=== PATIENT | female | born 1950 | race Caucasian/White ===

== ENCOUNTER → 2016-06-13 | Outpatient (CLI) | payer OTHER ==
[2016-06-13 15:30] LABS: Basophils # (auto) 0.1 uL; Basophils % (auto) 1.2 % (0.0-2.0); Eosinophils # (auto) 0.6 uL; Eosinophils % (auto) 7.3 % (0.0-7.0); Hematocrit 31.4 % (36.0-46.0); Hemoglobin 10.2 g/dL (12.2-16.2); Lymphocytes # (auto) 2.1 uL; Lymphocytes % (auto) 26.5 % (10.0-50.0); Mean Corpuscular Hgb Conc. 32.6 g/dL (32.0-36.0); Mean Platelet Volume 7.4 fL (7.4-10.4); Monocytes # (auto) 0.5 uL; Monocytes % (auto) 5.9 % (0.0-12.0); Neutrophils # (auto) 4.6 uL; Neutrophils % (auto) 59.1 % (37.0-80.0); Platelet Count (auto) 395 10^3/uL (140-450); Red Cell Distribution Width 15.3 % (11.6-16.0); White Blood Cell 7.8 10^3/uL (4.4-10.8)
[2016-06-13 15:46] LABS: Albumin 3.1 g/dL (3.4-5.0); BUN/Creatinine Ratio 21.3; Bilirubin, Total 0.2 mg/dL (0.2-1.0); Calcium 8.6 mg/dL (8.5-10.1); Potassium 4.1 mmol/L (3.5-5.1); Total Protein 7.5 g/dL (6.4-8.2)
== END | disposition home or self-care (01) ==
LOC: LAB 14:59
DX: I10 Essential (primary) hypertension (principal); M06.9 Rheumatoid arthritis, unspecified; M25.50 Pain in unspecified joint; D64.9 Anemia, unspecified; Z79.899 Other long term (current) drug therapy
CPT/HCPCS: 36415; 80053; 85025; 85652; 86141

== ENCOUNTER → 2016-08-16 | Outpatient (CLI) | payer OTHER ==
[2016-08-16 14:22] LABS: Basophils # (auto) 0.1 uL; Basophils % (auto) 1.5 % (0.0-2.0); Eosinophils # (auto) 0.3 uL; Eosinophils % (auto) 5.4 % (0.0-7.0); Hematocrit 31.6 % (36.0-46.0); Hemoglobin 10.4 g/dL (12.2-16.2); Mean Corpuscular Hemoglobin 30.2 pg (28.0-32.0); Mean Corpuscular Hgb Conc. 32.8 g/dL (32.0-36.0); Mean Corpuscular Volume 92.2 fL (80.0-100.0); Mean Platelet Volume 7.1 fL (7.4-10.4); Monocytes # (auto) 0.2 uL; Monocytes % (auto) 3.4 % (0.0-12.0); Neutrophils # (auto) 3.6 uL; Neutrophils % (auto) 69.7 % (37.0-80.0); Platelet Count (auto) 292 10^3/uL (140-450); White Blood Cell 5.2 10^3/uL (4.4-10.8)
[2016-08-16 14:42] LABS: Albumin 3.2 g/dL (3.4-5.0); Bilirubin, Total 0.2 mg/dL (0.2-1.0); Calcium 8.5 mg/dL (8.5-10.1); Potassium 4.1 mmol/L (3.5-5.1); Total Protein 7.9 g/dL (6.4-8.2)
== END | disposition home or self-care (01) ==
LOC: LAB 13:58
DX: I10 Essential (primary) hypertension (principal); M06.9 Rheumatoid arthritis, unspecified; M25.50 Pain in unspecified joint; Z79.899 Other long term (current) drug therapy; D64.9 Anemia, unspecified
CPT/HCPCS: 36415; 80053; 85025; 85652; 86141

== ENCOUNTER 2016-10-09 17:23 | Inpatient (IN) | payer OTHER ==
[~2016-10-09] VITALS: Ht 167.6 cm; Wt 61.6 kg
[2016-10-09 18:42] LABS: CONDITION Y; DEFINITIVE SEE PRINTOUT; Hematocrit 24.4 % (36.0-46.0); Hemoglobin 8.4 g/dL (12.2-16.2); Mean Corpuscular Hemoglobin 31.2 pg (28.0-32.0); Mean Corpuscular Hgb Conc. 34.5 g/dL (32.0-36.0); Mean Corpuscular Volume 90.4 fL (80.0-100.0); Platelet Count (auto) 393 10^3/uL (140-450); Red Cell Distribution Width 15.6 % (11.6-16.0); SUSPECT SEE PRINTOUT; White Blood Cell 15.6 10^3/uL (4.4-10.8)
[2016-10-09 18:59] LABS: Albumin 2.3 g/dL (3.4-5.0); Alkaline Phosphatase 149 U/L (45-117); Anion Gap 23 (5-15); Aspartate Aminotransferase 16 U/L (15-37); BUN/Creatinine Ratio 15.4; Bilirubin, Total 0.3 mg/dL (0.2-1.0); Calcium 7.3 mg/dL (8.5-10.1); Chloride 85 mmol/L (98-107); GFR African American 6 mL/min; GFR Non-African American 5 mL/min; Glucose 77 mg/dL (74-106); Magnesium 2.1 mg/dL (1.6-2.6); Potassium 4.6 mmol/L (3.5-5.1); Total Protein 7.1 g/dL (6.4-8.2)
[2016-10-09 19:10] LABS: Blood Urea Nitrogen 127 mg/dL (7-18); Carbon Dioxide 9 mmol/L (21-32); Metamyelocytes % 0; Myelocytes % 0; Promyelocytes % 0; Reactive Lymphocytes 0; Sodium 117 mmol/L (136-145)
[2016-10-09] MEDS ORDERED: PANTOPRAZOLE SODIUM 40 MG/10 ML VIAL IV ONE (19:45)
[2016-10-09 19:51] LABS: Allen Test Yes; Base Excess -14.4 mmol/L (-2.0-2.0); Blood 02Sat 97.8 % (96-100); Blood COHb 0.5 % (0.5-1.5); Blood MetHb 0.2 % (0.0-1.5); HCO3 11.6 mmol/L (22-26.0); HHb 2.2 % (0.0-5.0); MODE NASAL CANNULA; O2Hb 97.1 % (94.0-97.0); PCO2 27.8 mmHg (35.0-45.0); PCO2(T) 27.8 mmHg (35.0-45.0); Sample Type Arterial; pH 7.238 (7.350-7.450)
[2016-10-09] MEDS ORDERED: SODIUM CHLORIDE 0.9% 1,000 ML IV ONE ×2 (20:30→21:00)
[2016-10-09 20:35] LABS: Anisocytosis Slight; Platelet Estimate Adequate
[2016-10-09] MEDS ORDERED: NITROGLYCERIN 0.4 MG SL TAB SL PRN (21:00)
[2016-10-09] MEDS ORDERED: ASPirin 81 mg TAB PO ONE (21:00)
[2016-10-09] MEDS ORDERED: cefTRIAXone 1GM/50ML D5W 50 ML IV ONE (21:00)
[2016-10-09] MEDS ORDERED: MORPHINE SULFATE 4 MG/ML SYRG IV PRN (21:00)
[2016-10-09] MEDS ORDERED: LACTULOSE 20Gm/30ML SOLN PO PRN (21:00)
[2016-10-09] MEDS ORDERED: KETOROLAC TROMETH 30 MG/ML 1ML VIAL IV PRN (21:15)
[2016-10-09] MEDS ORDERED: SODIUM BICARBONATE 8.4 % INJ 50ML VIAL IV ONE (21:15)
[2016-10-09] MEDS ORDERED: SODIUM BICARBONATE 8.4% INJ 50ML SYRINGE ONE (21:37)
[2016-10-09 22:49] LABS: Urine Bilirubin Negative (Negative); Urine Color PINK (Yellow); Urine Glucose Normal (Normal); Urine Ketone Negative (Negative); Urine Nitrite Negative (Negative); Urine RBC 629 /hpf (0 - 4); Urine Urobilinogen Normal (Negative); Urine pH 5.5 (5.0-8.0)
[2016-10-09 22:50] LABS: Urine Blood 2+ /uL (Negative)
[2016-10-10 00:15] VITALS: BP 100/71
[2016-10-10] MEDS: LORazepam 2MG/ML-1ML VIAL IV PRN (01:13)
[2016-10-10] MEDS ORDERED: TRAM50TA2 PO (02:07)
[2016-10-10] MEDS ORDERED: AMLO5TAB2 PO (02:07)
[2016-10-10] MEDS ORDERED: ALPR0.254 PO (02:07)
[2016-10-10] MEDS ORDERED: METH2.5T3 PO (02:07)
[2016-10-10] MEDS ORDERED: NITR-52 PO (02:07)
[2016-10-10 06:38] LABS: Basophils # (auto) 0 uL; Basophils % (auto) 0.2 % (0.0-2.0); CONDITION Y; DEFINITIVE SEE PRINTOUT; Eosinophils # (auto) 0 uL; Eosinophils % (auto) 0.2 % (0.0-7.0); Hematocrit 23.9 % (36.0-46.0); Hemoglobin 8.1 g/dL (12.2-16.2); Lymphocytes # (auto) 0.7 uL; Lymphocytes % (auto) 6.6 % (10.0-50.0); Mean Corpuscular Hemoglobin 30.4 pg (28.0-32.0); Mean Corpuscular Hgb Conc. 33.8 g/dL (32.0-36.0); Mean Corpuscular Volume 89.9 fL (80.0-100.0); Mean Platelet Volume 7.9 fL (7.4-10.4); Monocytes # (auto) 0.1 uL; Monocytes % (auto) 1.1 % (0.0-12.0); Neutrophils # (auto) 10.4 uL; Neutrophils % (auto) 91.9 % (37.0-80.0); Platelet Count (auto) 418 10^3/uL (140-450); Red Cell Distribution Width 15.5 % (11.6-16.0); SUSPECT SEE PRINTOUT; White Blood Cell 11.3 10^3/uL (4.4-10.8)
[2016-10-10 06:54] LABS: Albumin 1.9 g/dL (3.4-5.0); Potassium 3.9 mmol/L (3.5-5.1)
[2016-10-10 07:08] LABS: BUN/Creatinine Ratio 18.7; Bilirubin, Total 0.2 mg/dL (0.2-1.0); Calcium 6.6 mg/dL (8.5-10.1); Total Protein 6.1 g/dL (6.4-8.2)
[2016-10-10] MEDS: cefTRIAXone 1GM/50ML D5W 50 ML IV SCH (09:26)
[2016-10-10] MEDS: PANTOPRAZOLE SODIUM 40 MG/10 ML VIAL IV SCH (09:26)
[2016-10-10] MEDS ORDERED: ENOXAPARIN SOD 30 MG/0.3 ML SYRINGE SC SCH (10:00)
[2016-10-10] MEDS ORDERED: ASPirin 81 mg TAB PO SCH (10:00)
[2016-10-10 11:45] VITALS: BP 102/55
[2016-10-10] MEDS: SODIUM CHLORIDE 0.9% 1,000 ML IV SCH ×2 (12:25→22:00)
[2016-10-10 12:42] LABS: Urine Bilirubin Negative (Negative); Urine Glucose Normal (Normal); Urine Ketone Negative (Negative); Urine Nitrite Negative (Negative); Urine RBC 769 /hpf (0 - 4); Urine Squamous Epithelial Cell FEW /hpf (<5); Urine Urobilinogen Normal (Negative); Urine pH 5.5 (5.0-8.0)
[2016-10-10 12:43] LABS: Urine Blood 3+ /uL (Negative); Urine Color Orange (Yellow)
[2016-10-10] MEDS: traMADol HCL 50 MG TAB PO PRN (15:41)
[2016-10-10 16:00] VITALS: BP 111/59
[2016-10-10 19:49] VITALS: BP 116/42
[2016-10-10 21:21] LABS: Vitamin B12 > 2000 pg/mL (211-911)
[2016-10-10 21:44] LABS: Temperature: 24.1 C (20.0-25.0)
[2016-10-11] VITALS (13 sets, daily range): BP systolic 112–154; BP diastolic 58–94
[2016-10-11 05:19] LABS: Basophils # (auto) 0 uL; CONDITION Y; DEFINITIVE SEE PRINTOUT; Eosinophils # (auto) 0.1 uL; Eosinophils % (auto) 1.4 % (0.0-7.0); Hematocrit 23.6 % (36.0-46.0); Hemoglobin 7.9 g/dL (12.2-16.2); Lymphocytes # (auto) 0.7 uL; Lymphocytes % (auto) 9.8 % (10.0-50.0); Mean Corpuscular Hemoglobin 30.6 pg (28.0-32.0); Mean Corpuscular Hgb Conc. 33.7 g/dL (32.0-36.0); Mean Corpuscular Volume 90.8 fL (80.0-100.0); Mean Platelet Volume 7.7 fL (7.4-10.4); Monocytes # (auto) 0.1 uL; Neutrophils # (auto) 6.6 uL; Neutrophils % (auto) 87.8 % (37.0-80.0); Platelet Count (auto) 520 10^3/uL (140-450); White Blood Cell 7.5 10^3/uL (4.4-10.8)
[2016-10-11 05:42] LABS: BUN/Creatinine Ratio 21.7; Calcium 6.2 mg/dL (8.5-10.1); Phosphorus 7.3 mg/dL (2.5-4.90); Potassium 3.7 mmol/L (3.5-5.1)
[2016-10-11] MEDS: traMADol HCL 50 MG TAB PO PRN ×3 (05:59→18:21)
[2016-10-11] MEDS: cefTRIAXone 1GM/50ML D5W 50 ML IV SCH (09:00)
[2016-10-11] MEDS: PANTOPRAZOLE SODIUM 40 MG/10 ML VIAL IV SCH (09:37)
[2016-10-11 11:07] LABS: Sjogren's Anti-SS-A Antibody <0.2 AI (0.0-0.9)
[2016-10-11] MEDS: SODIUM BICARBONATE 50ML VIAL 50 ML in SOD CHL 0.45% 1,000 ML IV SCH (11:45)
[2016-10-11] MEDS: FOLIC ACID 1 MG in D5W 5% 50 ML INJ SCH (16:10)
[2016-10-11] MEDS: LORazepam 2MG/ML-1ML VIAL IV PRN (16:41)
[2016-10-12] VITALS (7 sets, daily range): BP systolic 138–154; BP diastolic 66–82
[2016-10-12] MEDS: traMADol HCL 50 MG TAB PO PRN ×3 (00:17→15:15)
[2016-10-12] MEDS: SODIUM BICARBONATE 50ML VIAL 50 ML in SOD CHL 0.45% 1,000 ML IV SCH ×2 (01:00→08:40)
[2016-10-12] MEDS: LORazepam 2MG/ML-1ML VIAL IV PRN ×2 (02:19→19:58)
[2016-10-12 05:21] LABS: Basophils # (auto) 0 uL; Basophils % (auto) 0.2 % (0.0-2.0); CONDITION Y; Eosinophils # (auto) 0 uL; Hematocrit 28.1 % (36.0-46.0); Hemoglobin 9.5 g/dL (12.2-16.2); Lymphocytes # (auto) 0.5 uL; Lymphocytes % (auto) 14.6 % (10.0-50.0); Mean Corpuscular Hemoglobin 30.1 pg (28.0-32.0); Mean Corpuscular Hgb Conc. 33.8 g/dL (32.0-36.0); Mean Corpuscular Volume 89.1 fL (80.0-100.0); Mean Platelet Volume 7.3 fL (7.4-10.4); Monocytes # (auto) 0 uL; Neutrophils # (auto) 2.7 uL; Neutrophils % (auto) 83.2 % (37.0-80.0); Platelet Count (auto) 505 10^3/uL (140-450); White Blood Cell 3.2 10^3/uL (4.4-10.8)
[2016-10-12 05:32] LABS: INR 1.18 (0.9-1.15)
[2016-10-12 05:33] LABS: Prothrombin Time 12.9 sec (9.37-12.3)
[2016-10-12 05:38] LABS: Albumin 1.8 g/dL (3.4-5.0); BUN/Creatinine Ratio 27.4; Bilirubin, Total 0.6 mg/dL (0.2-1.0); Calcium 7.2 mg/dL (8.5-10.1); Phosphorus 5.4 mg/dL (2.5-4.90); Potassium 3.4 mmol/L (3.5-5.1); Total Protein 5.8 g/dL (6.4-8.2); Uric Acid 11.7 mg/dL (2.6-6.0)
[2016-10-12] MEDS: cefTRIAXone 1GM/50ML D5W 50 ML IV SCH (09:22)
[2016-10-12] MEDS: PANTOPRAZOLE SODIUM 40 MG/10 ML VIAL IV SCH (09:22)
[2016-10-12] MEDS: SODIUM CHLORIDE 0.9% 1,000 ML IV SCH (15:16)
[2016-10-12] MEDS: FOLIC ACID 1 MG in D5W 5% 50 ML INJ SCH (15:34)
[2016-10-13] MEDS: SODIUM CHLORIDE 0.9% 1,000 ML IV SCH ×3 (01:15→22:13)
[2016-10-13 05:06] VITALS: BP 133/60
[2016-10-13 06:06] LABS: Basophils # (auto) 0 uL; Basophils % (auto) 0.1 % (0.0-2.0); CONDITION Y; DEFINITIVE SEE PRINTOUT; Eosinophils # (auto) 0 uL; Eosinophils % (auto) 3.1 % (0.0-7.0); Hematocrit 24.5 % (36.0-46.0); Hemoglobin 8.4 g/dL (12.2-16.2); Lymphocytes # (auto) 0.7 uL; Lymphocytes % (auto) 43.1 % (10.0-50.0); Mean Corpuscular Hemoglobin 29.9 pg (28.0-32.0); Mean Corpuscular Hgb Conc. 34.4 g/dL (32.0-36.0); Mean Corpuscular Volume 86.9 fL (80.0-100.0); Mean Platelet Volume 7.5 fL (7.4-10.4); Monocytes # (auto) 0 uL; Monocytes % (auto) 1.9 % (0.0-12.0); Neutrophils # (auto) 0.8 uL; Neutrophils % (auto) 51.8 % (37.0-80.0); Platelet Count (auto) 398 10^3/uL (140-450); Red Cell Distribution Width 15.4 % (11.6-16.0); SUSPECT SEE PRINTOUT
[2016-10-13 06:20] LABS: INR 1.71 (0.9-1.15); Prothrombin Time 18.7 sec (9.37-12.3)
[2016-10-13 06:32] LABS: Albumin 1.7 g/dL (3.4-5.0); BUN/Creatinine Ratio 31.4; Bilirubin, Total 0.8 mg/dL (0.2-1.0); Magnesium 1.6 mg/dL (1.6-2.6); Total Protein 5.5 g/dL (6.4-8.2)
[2016-10-13 06:43] LABS: White Blood Cell 1.6 10^3/uL (4.4-10.8)
[2016-10-13 08:20] VITALS: BP 153/80
[2016-10-13] MEDS: cefTRIAXone 1GM/50ML D5W 50 ML IV SCH (08:40)
[2016-10-13] MEDS ORDERED: POTASSIUM CHL 20 Meq TABLET PO ONE (09:00)
[2016-10-13] MEDS: PANTOPRAZOLE SODIUM 40 MG/10 ML VIAL IV SCH (10:16)
[2016-10-13] MEDS: LORazepam 2MG/ML-1ML VIAL IV PRN ×2 (10:48→18:39)
[2016-10-13] MEDS: metroNIDAZOLE 500MG/100ML 100 ML IV SCH ×2 (13:09→22:12)
[2016-10-13 14:18] VITALS: BP 132/68
[2016-10-13] MEDS: VANCOMYCIN HCL 125MG/5ML ORAL SOL PO SCH ×3 (14:46→22:13)
[2016-10-13] MEDS: FOLIC ACID 1 MG in D5W 5% 50 ML INJ SCH (16:57)
[2016-10-13 17:20] VITALS: BP 139/60
[2016-10-13 21:49] VITALS: BP 131/64
[2016-10-14] MEDS: traMADol HCL 50 MG TAB PO PRN (02:19)
[2016-10-14 05:02] VITALS: BP 134/72
[2016-10-14] MEDS: metroNIDAZOLE 500MG/100ML 100 ML IV SCH ×3 (06:18→22:13)
[2016-10-14] MEDS: VANCOMYCIN HCL 125MG/5ML ORAL SOL PO SCH ×4 (06:18→22:13)
[2016-10-14 06:28] LABS: CONDITION Y; DEFINITIVE SEE PRINTOUT; Hematocrit 24.1 % (36.0-46.0); Hemoglobin 8.2 g/dL (12.2-16.2); Mean Corpuscular Hemoglobin 30.3 pg (28.0-32.0); Mean Corpuscular Volume 89.1 fL (80.0-100.0); Mean Platelet Volume 7.1 fL (7.4-10.4); Platelet Count (auto) 344 10^3/uL (140-450); Red Cell Distribution Width 15.8 % (11.6-16.0); SUSPECT SEE PRINTOUT; White Blood Cell 2.6 10^3/uL (4.4-10.8)
[2016-10-14 06:31] LABS: Albumin 1.8 g/dL (3.4-5.0); BUN/Creatinine Ratio 28.2; Calcium 6.5 mg/dL (8.5-10.1); Magnesium 1.3 mg/dL (1.6-2.6); Potassium 3.1 mmol/L (3.5-5.1)
[2016-10-14 06:34] LABS: Bilirubin, Total 0.7 mg/dL (0.2-1.0); Total Protein 5.6 g/dL (6.4-8.2)
[2016-10-14 06:38] LABS: INR 1.89 (0.9-1.15)
[2016-10-14 06:56] LABS: Prothrombin Time 20.7 sec (9.37-12.3)
[2016-10-14 07:13] LABS: Metamyelocytes % 0; Myelocytes % 0; Promyelocytes % 0; Reactive Lymphocytes 0
[2016-10-14] MEDS: SODIUM CHLORIDE 0.9% 1,000 ML IV SCH ×2 (07:25→18:00)
[2016-10-14 07:55] LABS: Hypersegmented Neutrophils Present; Platelet Estimate Adequate
[2016-10-14 07:56] LABS: Anisocytosis Slight
[2016-10-14] MEDS: ONDANSETRON HCL 4 MG/2 ML VIAL IV PRN (08:48)
[2016-10-14] MEDS: cefTRIAXone 1GM/50ML D5W 50 ML IV SCH (08:48)
[2016-10-14 09:00] VITALS: BP 147/73
[2016-10-14 09:12] LABS: Hepatitis B Surface Antibody Positive
[2016-10-14 09:15] LABS: Vitamin B12 > 2000 pg/mL (211-911)
[2016-10-14 09:45] LABS: Temperature: 22.3 C (20.0-25.0)
[2016-10-14] MEDS: PANTOPRAZOLE SODIUM 40 MG/10 ML VIAL IV SCH (10:10)
[2016-10-14] MEDS ORDERED: POTASSIUM CHL 20 Meq TABLET PO ONE ×3 (11:45→18:00)
[2016-10-14 13:00] VITALS: BP 132/69
[2016-10-14] MEDS: LORazepam 2MG/ML-1ML VIAL IV PRN ×2 (14:29→20:50)
[2016-10-14] MEDS: FOLIC ACID 1 MG in D5W 5% 50 ML INJ SCH (16:05)
[2016-10-14 17:00] VITALS: BP 135/78
[2016-10-14 21:37] VITALS: BP 143/73
[2016-10-15] MEDS: SODIUM CHLORIDE 0.9% 1,000 ML IV SCH ×2 (03:15→13:15)
[2016-10-15] MEDS: traMADol HCL 50 MG TAB PO PRN (05:02)
[2016-10-15 05:14] VITALS: BP 151/77
[2016-10-15] MEDS: metroNIDAZOLE 500MG/100ML 100 ML IV SCH ×3 (05:54→22:07)
[2016-10-15] MEDS: VANCOMYCIN HCL 125MG/5ML ORAL SOL PO SCH ×4 (05:55→22:39)
[2016-10-15 06:46] LABS: CONDITION Y; DEFINITIVE SEE PRINTOUT; Hematocrit 23.6 % (36.0-46.0); Hemoglobin 8.1 g/dL (12.2-16.2); Mean Corpuscular Hgb Conc. 34.1 g/dL (32.0-36.0); Mean Corpuscular Volume 88.2 fL (80.0-100.0); Mean Platelet Volume 7.2 fL (7.4-10.4); Platelet Count (auto) 257 10^3/uL (140-450); Red Cell Distribution Width 15.8 % (11.6-16.0); SUSPECT SEE PRINTOUT; White Blood Cell 3.2 10^3/uL (4.4-10.8)
[2016-10-15 07:05] LABS: INR 1.49 (0.9-1.15)
[2016-10-15 07:06] LABS: Potassium 4.3 mmol/L (3.5-5.1)
[2016-10-15 07:10] LABS: Albumin 1.8 g/dL (3.4-5.0); BUN/Creatinine Ratio 23.4; Calcium 6.9 mg/dL (8.5-10.1); Magnesium 1.4 mg/dL (1.6-2.6)
[2016-10-15 07:14] LABS: Prothrombin Time 16.3 sec (9.37-12.3)
[2016-10-15 07:22] LABS: Bilirubin, Total 0.6 mg/dL (0.2-1.0); Metamyelocytes % 0; Myelocytes % 0; Promyelocytes % 0; Reactive Lymphocytes 0; Total Protein 5.4 g/dL (6.4-8.2)
[2016-10-15 08:52] LABS: Platelet Clumps FEW; Platelet Estimate Adequate
[2016-10-15 08:53] LABS: Hypochromia Moderate
[2016-10-15 09:00] VITALS: BP 137/79
[2016-10-15] MEDS: PANTOPRAZOLE SODIUM 40 MG/10 ML VIAL IV SCH (10:31)
[2016-10-15] MEDS: cefTRIAXone 1GM/50ML D5W 50 ML IV SCH (10:31)
[2016-10-15] MEDS: LORazepam 2MG/ML-1ML VIAL IV PRN ×2 (10:31→18:18)
[2016-10-15 13:00] VITALS: BP 131/76
[2016-10-15] MEDS: FOLIC ACID 1 MG in D5W 5% 50 ML INJ SCH (16:48)
[2016-10-15 17:00] VITALS: BP 133/75
[2016-10-15 22:00] VITALS: BP 155/77
[2016-10-15] MEDS: ONDANSETRON HCL 4 MG/2 ML VIAL IV PRN (22:39)
[2016-10-16] MEDS: SODIUM CHLORIDE 0.9% 1,000 ML IV SCH ×3 (01:42→19:28)
[2016-10-16] MEDS: LORazepam 2MG/ML-1ML VIAL IV PRN ×2 (01:42→13:32)
[2016-10-16 05:00] VITALS: BP 147/78
[2016-10-16] MEDS: VANCOMYCIN HCL 125MG/5ML ORAL SOL PO SCH ×3 (05:34→17:58)
[2016-10-16] MEDS: metroNIDAZOLE 500MG/100ML 100 ML IV SCH ×2 (05:34→13:57)
[2016-10-16] MEDS: ONDANSETRON HCL 4 MG/2 ML VIAL IV PRN ×2 (05:35→09:47)
[2016-10-16 06:38] LABS: INR 1.47 (0.9-1.15)
[2016-10-16 06:47] LABS: Prothrombin Time 16.1 sec (9.37-12.3)
[2016-10-16 06:50] LABS: Albumin 1.8 g/dL (3.4-5.0); BUN/Creatinine Ratio 20.3; Bilirubin, Total 0.4 mg/dL (0.2-1.0); Calcium 6.7 mg/dL (8.5-10.1); Magnesium 1.2 mg/dL (1.6-2.6); Potassium 3.5 mmol/L (3.5-5.1); Total Protein 5.1 g/dL (6.4-8.2)
[2016-10-16 07:26] LABS: Basophils # (auto) 0 uL; CONDITION Y; DEFINITIVE SEE PRINTOUT; Eosinophils # (auto) 0.2 uL; Lymphocytes # (auto) 0.8 uL; Monocytes # (auto) 0 uL; SUSPECT SEE PRINTOUT; White Blood Cell 3.1 10^3/uL (4.4-10.8)
[2016-10-16 07:48] LABS: Basophils % (auto) 0.4 % (0.0-2.0); Eosinophils % (auto) 6.6 % (0.0-7.0); Hematocrit 22.8 % (36.0-46.0); Hemoglobin 7.8 g/dL (12.2-16.2); Lymphocytes % (auto) 26.6 % (10.0-50.0); Mean Corpuscular Hemoglobin 30.3 pg (28.0-32.0); Mean Corpuscular Hgb Conc. 34.2 g/dL (32.0-36.0); Mean Corpuscular Volume 88.5 fL (80.0-100.0); Mean Platelet Volume 7.3 fL (7.4-10.4); Monocytes % (auto) 0.1 % (0.0-12.0); Neutrophils % (auto) 66.3 % (37.0-80.0); Platelet Count (auto) 187 10^3/uL (140-450); Red Cell Distribution Width 15.2 % (11.6-16.0)
[2016-10-16] MEDS: cefTRIAXone 1GM/50ML D5W 50 ML IV SCH (09:46)
[2016-10-16] MEDS: PANTOPRAZOLE SODIUM 40 MG/10 ML VIAL IV SCH (09:47)
[2016-10-16] MEDS: traMADol HCL 50 MG TAB PO PRN (09:48)
[2016-10-16 10:08] VITALS: BP 126/68
[2016-10-16 14:32] VITALS: BP 128/70
[2016-10-16] MEDS: FOLIC ACID 1 MG in D5W 5% 50 ML INJ SCH (16:30)
[2016-10-16 17:35] VITALS: BP 130/80
== END 2016-10-16 19:15 | disposition home or self-care (01) | DRG 871 ==
LOC: ER 17:23 → EDBD 17:23 → TELE 17:54 → ICU CENTRL 23:52 → DOU IN ICU 23:54 → TELE-WESTW 10-11 21:30
PROVIDERS: ADMIT Family Medicine; ATTEND Internal Medicine
PROC: 30233N1 Transfusion of Nonautologous Red Blood Cells into Peripheral Vein, Percutaneous Approach (ICD-10-PCS; principal; 2016-10-11)
DX: A41.9 Sepsis, unspecified organism (principal); N17.0 Acute kidney failure with tubular necrosis; G93.49 Other encephalopathy; G92 Toxic encephalopathy; E87.1 Hypo-osmolality and hyponatremia; N39.0 Urinary tract infection, site not specified; A04.7 Enterocolitis due to Clostridium difficile; E87.2 Acidosis; D61.818 Other pancytopenia; N12 Tubulo-interstitial nephritis, not specified as acute or chronic; M06.9 Rheumatoid arthritis, unspecified; D53.9 Nutritional anemia, unspecified; E86.0 Dehydration; B96.20 Unspecified Escherichia coli [E. coli] as the cause of diseases classified elsewhere; N18.2 Chronic kidney disease, stage 2 (mild); I12.9 Hypertensive chronic kidney disease with stage 1 through stage 4 chronic kidney disease, or unspecified chronic kidney disease; G89.29 Other chronic pain; D63.8 Anemia in other chronic diseases classified elsewhere; T50.905A Adverse effect of unspecified drugs, medicaments and biological substances, initial encounter; I70.0 Atherosclerosis of aorta; Z80.0 Family history of malignant neoplasm of digestive organs; Z79.1 Long term (current) use of non-steroidal anti-inflammatories (NSAID); Z82.3 Family history of stroke; Z82.49 Family history of ischemic heart disease and other diseases of the circulatory system; Z88.1 Allergy status to other antibiotic agents; Z71.89 Other specified counseling
CPT/HCPCS: 36415; 36600; 70450; 70551; 71010; 76705; 80048; 80053; 81001; 82270; 82306; 82570; 82607; 82728; 82746; 82805; 82962; 83516; 83540; 83550; 83735; 83935; 83970; 84100; 84156; 84300; 84439; 84443; 84484; 84550; 85007; 85025; 85027; 85045; 85610; 85652; 86225; 86235; 86706; 86803; 86850; 86900; 86901; 86920; 87040; 87077; 87081; 87086; 87186; 87340; 87493; 92610; 93005; 95819; 96361; 96365; 96375; 97110; 97116; 97163; 97530; C9113; J0696; J2405; J3490; J7060

== ENCOUNTER → 2016-10-31 | Outpatient (CLI) | payer OTHER ==
[~2016-10-31] MED LIST: ALPR0.254 PO; AMLO5TAB2 PO; METH2.5T3 PO; NITR-52 PO; TRAM50TA2 PO
[2016-10-31 09:43] LABS: Basophils # (auto) 0.1 uL; Basophils % (auto) 0.9 % (0.0-2.0); CONDITION Y; DEFINITIVE SEE PRINTOUT; Eosinophils # (auto) 0.4 uL; Eosinophils % (auto) 2.8 % (0.0-7.0); Lymphocytes # (auto) 2.4 uL; Lymphocytes % (auto) 15.4 % (10.0-50.0); Mean Corpuscular Hemoglobin 29.8 pg (28.0-32.0); Mean Corpuscular Hgb Conc. 33.6 g/dL (32.0-36.0); Mean Corpuscular Volume 88.8 fL (80.0-100.0); Mean Platelet Volume 8.5 fL (7.4-10.4); Monocytes # (auto) 1.6 uL; Monocytes % (auto) 10.5 % (0.0-12.0); Neutrophils # (auto) 10.9 uL; Neutrophils % (auto) 70.4 % (37.0-80.0); Platelet Count (auto) 542 10^3/uL (140-450); Red Cell Distribution Width 15.8 % (11.6-16.0); White Blood Cell 15.5 10^3/uL (4.4-10.8)
[2016-10-31 10:03] LABS: Albumin 2.5 g/dL (3.4-5.0); BUN/Creatinine Ratio 7.7; Bilirubin, Total 0.1 mg/dL (0.2-1.0); Calcium 8.4 mg/dL (8.5-10.1); Potassium 3.7 mmol/L (3.5-5.1); Total Protein 7.2 g/dL (6.4-8.2)
== END | disposition home or self-care (01) ==
LOC: LAB 07:13
PROVIDERS: ATTEND Internal Medicine
DX: Z00.00 Encounter for general adult medical examination without abnormal findings (principal); Z20.2 Contact with and (suspected) exposure to infections with a predominantly sexual mode of transmission; E78.2 Mixed hyperlipidemia; I10 Essential (primary) hypertension
CPT/HCPCS: 36415; 80053; 80061; 84443; 85025; 87522

== ENCOUNTER → 2016-11-05 | Outpatient (CLI) | payer OTHER ==
[2016-11-05 10:39] LABS: Urine Squamous Epithelial Cell None Seen /hpf (<5)
[2016-11-05 10:48] LABS: Urine Color Yellow (Yellow); Urine Glucose Normal (Normal)
[2016-11-05 10:49] LABS: Urine Bilirubin Negative (Negative); Urine Blood 3+ /uL (Negative); Urine Ketone Negative (Negative); Urine Nitrite Negative (Negative); Urine RBC 144 /hpf (0 - 4); Urine Urobilinogen Normal (Negative); Urine pH 6.5 (5.0-8.0)
== END | disposition home or self-care (01) ==
LOC: LAB 10:37
PROVIDERS: ATTEND Internal Medicine
DX: Z00.00 Encounter for general adult medical examination without abnormal findings (principal); Z20.2 Contact with and (suspected) exposure to infections with a predominantly sexual mode of transmission; E78.2 Mixed hyperlipidemia; I10 Essential (primary) hypertension
CPT/HCPCS: 81001

== ENCOUNTER → 2017-02-21 | Outpatient (CLI) | payer MEDICARE ==
[2017-02-21 13:38] LABS: Basophils # (auto) 0.1 uL; Basophils % (auto) 0.9 % (0.0-2.0); Eosinophils # (auto) 0.6 uL; Hematocrit 24.3 % (36.0-46.0); Hemoglobin 7.9 g/dL (12.2-16.2); Lymphocytes # (auto) 3.2 uL; Lymphocytes % (auto) 26.7 % (10.0-50.0); Mean Corpuscular Hemoglobin 27.6 pg (28.0-32.0); Mean Corpuscular Hgb Conc. 32.4 g/dL (32.0-36.0); Mean Corpuscular Volume 85.2 fL (80.0-100.0); Mean Platelet Volume 6.6 fL (6.9-10.8); Monocytes % (auto) 8.6 % (0.0-12.0); Neutrophils # (auto) 7.1 uL; Neutrophils % (auto) 58.8 % (37.0-80.0); Platelet Count (auto) 439 10^3/uL (140-450); Red Cell Distribution Width 14.3 % (11.8-14.3); White Blood Cell 12.1 10^3/uL (4.4-10.8)
[2017-02-21 14:17] LABS: Albumin 2.8 g/dL (3.4-5.0); BUN/Creatinine Ratio 24.3; Bilirubin, Total 0.2 mg/dL (0.2-1.0); Calcium 8.4 mg/dL (8.5-10.1); Potassium 3.9 mmol/L (3.5-5.1)
== END | disposition home or self-care (01) ==
LOC: LAB 13:10
DX: I70.0 Atherosclerosis of aorta (principal); E78.00 Pure hypercholesterolemia, unspecified; I10 Essential (primary) hypertension; M06.9 Rheumatoid arthritis, unspecified; M25.50 Pain in unspecified joint; D64.9 Anemia, unspecified; Z79.899 Other long term (current) drug therapy
CPT/HCPCS: 36415; 80053; 85025; 85652; 86141

== ENCOUNTER 2017-04-05 09:00 | Emergency (ER) | payer MEDICARE ==
[~2017-04-05] VITALS: Ht 167.6 cm; Wt 51.7 kg
[2017-04-05 09:21] VITALS: BP 123/77
== END 2017-04-05 10:12 | disposition home or self-care (01) ==
LOC: ER 09:00
DX: M19.90 Unspecified osteoarthritis, unspecified site (principal); I10 Essential (primary) hypertension; Z76.0 Encounter for issue of repeat prescription; Z88.1 Allergy status to other antibiotic agents

== ENCOUNTER → 2018-02-17 | Outpatient (CLI) | payer BC ==
[~2018-02-17] MED LIST changes: +AMLO5TAB13 PO; -AMLO5TAB2 PO
[2018-02-17 15:47] LABS: Basophils # (auto) 0 uL; Basophils % (auto) 0.6 % (0.0-2.0); Eosinophils # (auto) 0.2 uL; Eosinophils % (auto) 3.6 % (0.0-7.0); Hematocrit 35.2 % (36.0-46.0); Hemoglobin 11.6 g/dL (12.2-16.2); Lymphocytes # (auto) 1.9 uL; Lymphocytes % (auto) 28.7 % (10.0-50.0); Mean Corpuscular Hemoglobin 31.1 pg (28.0-32.0); Monocytes # (auto) 0.7 uL; Monocytes % (auto) 9.7 % (0.0-12.0); Neutrophils # (auto) 3.9 uL; Neutrophils % (auto) 57.4 % (37.0-80.0); Platelet Count (auto) 261 10^3/uL (140-450); Red Blood Cells 3.75 10^6/uL (4.0-5.20); Red Cell Distribution Width 15.7 % (11.8-14.3); White Blood Cell 6.7 10^3/uL (4.4-10.8)
[2018-02-17 16:05] LABS: INR 0.98 (0.9-1.15); Prothrombin Time 10.5 sec (9.27-12.13)
[2018-02-17 17:22] LABS: Potassium 4.5 mmol/L (3.5-5.1)
[2018-02-17 17:23] LABS: Calcium 7.9 mg/dL (8.5-10.1)
== END | disposition home or self-care (01) ==
LOC: LAB 14:39
DX: K41.00 Bilateral femoral hernia, with obstruction, without gangrene, not specified as recurrent (principal)
CPT/HCPCS: 36415; 80048; 85025; 85610; 85730

== ENCOUNTER → 2018-03-12 | Outpatient (CLI) | payer BC ==
[2018-03-12 09:40] LABS: Basophils # (auto) 0.1 uL; Basophils % (auto) 1.2 % (0.0-2.0); Eosinophils # (auto) 0.4 uL; Eosinophils % (auto) 6.3 % (0.0-7.0); Hematocrit 35.6 % (36.0-46.0); Hemoglobin 11.7 g/dL (12.2-16.2); Lymphocytes # (auto) 1.7 uL; Lymphocytes % (auto) 24.7 % (10.0-50.0); Mean Corpuscular Hemoglobin 30.9 pg (28.0-32.0); Mean Corpuscular Hgb Conc. 32.9 g/dL (32.0-36.0); Monocytes # (auto) 0.5 uL; Monocytes % (auto) 7.4 % (0.0-12.0); Neutrophils # (auto) 4.3 uL; Neutrophils % (auto) 60.4 % (37.0-80.0); Platelet Count (auto) 363 10^3/uL (140-450); Red Blood Cells 3.78 10^6/uL (4.0-5.20); Red Cell Distribution Width 15.6 % (11.8-14.3); White Blood Cell 7.1 10^3/uL (4.4-10.8)
[2018-03-12 10:06] LABS: Calcium 8.6 mg/dL (8.5-10.1); Potassium 4.6 mmol/L (3.5-5.1)
[2018-03-12 10:13] LABS: Albumin 3.2 g/dL (3.4-5.0); BUN/Creatinine Ratio 17.4; Bilirubin, Total 0.3 mg/dL (0.2-1.0); Total Protein 7.4 g/dL (6.4-8.2)
== END | disposition home or self-care (01) ==
LOC: LAB 08:33
DX: R91.8 Other nonspecific abnormal finding of lung field (principal)
CPT/HCPCS: 36415; 80053; 80061; 83036; 83970; 85025

== ENCOUNTER → 2018-03-17 | Outpatient (CLI) | payer BC | END | disposition home or self-care (01) | LOC: LAB 09:56 | DX: R91.8 Other nonspecific abnormal finding of lung field (principal) | CPT/HCPCS: 82043 ==

== ENCOUNTER → 2018-04-22 | Outpatient (CLI) | payer BC, OTHER ==
[2018-04-22 15:39] LABS: Basophils # (auto) 0 uL; Basophils % (auto) 0.7 % (0.0-2.0); Eosinophils # (auto) 0.6 uL; Eosinophils % (auto) 10.8 % (0.0-7.0); Hematocrit 32.4 % (36.0-46.0); Hemoglobin 10.5 g/dL (12.2-16.2); Lymphocytes # (auto) 1.6 uL; Lymphocytes % (auto) 26.5 % (10.0-50.0); Mean Corpuscular Hemoglobin 30.8 pg (28.0-32.0); Mean Corpuscular Hgb Conc. 32.4 g/dL (32.0-36.0); Mean Corpuscular Volume 94.9 fL (80.0-100.0); Monocytes # (auto) 0.9 uL; Monocytes % (auto) 14.6 % (0.0-12.0); Neutrophils # (auto) 2.8 uL; Neutrophils % (auto) 47.4 % (37.0-80.0); Nucleated Red Blood Cells % 0.1 %; Platelet Count (auto) 248 10^3/uL (140-450); Red Blood Cells 3.41 10^6/uL (4.0-5.20); Red Cell Distribution Width 15.2 % (11.8-14.3)
[2018-04-22 15:59] LABS: Albumin 3.2 g/dL (3.4-5.0); Calcium 8.3 mg/dL (8.5-10.1); Potassium 4.3 mmol/L (3.5-5.1)
[2018-04-22 16:03] LABS: BUN/Creatinine Ratio 22.4; Bilirubin, Total 0.2 mg/dL (0.2-1.0); Total Protein 7.6 g/dL (6.4-8.2)
[2018-04-22 16:06] LABS: INR 0.97 (0.9-1.15); Partial Thromboplastin Time 34.8 sec (23.78-33.04); Prothrombin Time 10.4 sec (9.27-12.13)
== END | disposition home or self-care (01) ==
LOC: LAB 15:06
DX: Z01.818 Encounter for other preprocedural examination (principal); J44.9 Chronic obstructive pulmonary disease, unspecified; R91.8 Other nonspecific abnormal finding of lung field
CPT/HCPCS: 36415; 80053; 85025; 85610; 85730

== ENCOUNTER → 2018-08-20 | Outpatient (CLI) | payer OTHER ==
[2018-08-20 15:27] LABS: Basophils # (auto) 0 uL; Basophils % (auto) 0.4 % (0.0-2.0); Eosinophils # (auto) 0.3 uL; Eosinophils % (auto) 3.2 % (0.0-7.0); Hematocrit 29.2 % (36.0-46.0); Hemoglobin 9.5 g/dL (12.2-16.2); Lymphocytes # (auto) 0.8 uL; Lymphocytes % (auto) 7.8 % (10.0-50.0); Mean Corpuscular Hemoglobin 29.5 pg (28.0-32.0); Mean Corpuscular Hgb Conc. 32.4 g/dL (32.0-36.0); Mean Corpuscular Volume 90.9 fL (80.0-100.0); Monocytes # (auto) 0.9 uL; Neutrophils # (auto) 7.8 uL; Neutrophils % (auto) 79.6 % (37.0-80.0); Platelet Count (auto) 226 10^3/uL (140-450); Red Blood Cells 3.21 10^6/uL (4.0-5.20); Red Cell Distribution Width 18.4 % (11.8-14.3); White Blood Cell 9.8 10^3/uL (4.4-10.8)
[2018-08-20 15:45] LABS: Albumin 3.3 g/dL (3.4-5.0)
== END | disposition home or self-care (01) ==
LOC: LAB 14:36
PROVIDERS: ATTEND Internal Medicine Rheumatology
DX: M06.9 Rheumatoid arthritis, unspecified (principal)
CPT/HCPCS: 36415; 82040; 82565; 84450; 84460; 85025

== ENCOUNTER → 2018-10-20 | Outpatient (CLI) | payer MEDICARE ==
[~2018-10-20] MED LIST changes: -AMLO5TAB13 PO; +AMLO5TAB15 PO
[2018-10-20 14:10] LABS: Basophils # (auto) 0.1 uL; Eosinophils # (auto) 0.1 uL; Hematocrit 24.4 % (36.0-46.0); Lymphocytes # (auto) 0.9 uL; Mean Corpuscular Volume 88.5 fL (80.0-100.0); Monocytes # (auto) 0.4 uL; Red Cell Distribution Width 18.1 % (11.8-14.3)
[2018-10-20 14:12] LABS: Eosinophils % (auto) 2.3 % (0.0-7.0); Hemoglobin 7.9 g/dL (12.2-16.2); Lymphocytes % (auto) 14.6 % (10.0-50.0); Mean Corpuscular Hemoglobin 28.6 pg (28.0-32.0); Mean Corpuscular Hgb Conc. 32.4 g/dL (32.0-36.0); Neutrophils # (auto) 4.7 uL; Neutrophils % (auto) 76.1 % (37.0-80.0); Platelet Count (auto) 331 10^3/uL (140-450); Red Blood Cells 2.75 10^6/uL (4.0-5.20); White Blood Cell 6.2 10^3/uL (4.4-10.8)
[2018-10-20 14:39] LABS: Albumin 2.9 g/dL (3.4-5.0)
[2018-10-20 14:43] LABS: BUN/Creatinine Ratio 23.2; Bilirubin, Total 0.2 mg/dL (0.2-1.0); Calcium 8.6 mg/dL (8.5-10.1); Total Protein 7.6 g/dL (6.4-8.2); Uric Acid 3.6 mg/dL (2.6-6.0)
[2018-10-21 08:06] LABS: Immunoglobulin G, Serum 1506 mg/dL (700-1600)
[2018-10-22 08:37] LABS: Hepatitis B Surface Antibody Positive
[2018-10-22 13:05] LABS: Hepatitis B Surface Antigen Negative (Negative)
== END | disposition home or self-care (01) ==
LOC: LAB 13:35
PROVIDERS: ATTEND Internal Medicine
DX: R91.8 Other nonspecific abnormal finding of lung field (principal); Z11.59 Encounter for screening for other viral diseases
CPT/HCPCS: 36415; 80053; 82232; 82784; 83615; 83883; 84155; 84165; 84550; 85025; 85652; 86703; 86706; 86803; 87340

== ENCOUNTER → 2019-01-01 | Outpatient (CLI) | payer MEDICARE ==
[2019-01-01 15:05] LABS: Basophils # (auto) 0.1 uL; Eosinophils # (auto) 0.3 uL; Hemoglobin 8.2 g/dL (12.2-16.2); Monocytes # (auto) 1.2 uL
[2019-01-01 15:10] LABS: Basophils % (auto) 1.2 % (0.0-2.0); Hematocrit 25.4 % (36.0-46.0); Lymphocytes % (auto) 13.7 % (10.0-50.0); Mean Corpuscular Hemoglobin 27.7 pg (28.0-32.0); Mean Corpuscular Hgb Conc. 32.5 g/dL (32.0-36.0); Mean Corpuscular Volume 85.3 fL (80.0-100.0); Monocytes % (auto) 16.3 % (0.0-12.0); Neutrophils # (auto) 4.6 uL; Neutrophils % (auto) 64.8 % (37.0-80.0); Platelet Count (auto) 308 10^3/uL (140-450); Red Blood Cells 2.97 10^6/uL (4.0-5.20); Red Cell Distribution Width 18.9 % (11.8-14.3); White Blood Cell 7.1 10^3/uL (4.4-10.8)
[2019-01-01 15:20] LABS: Albumin 2.9 g/dL (3.4-5.0); Calcium 8.1 mg/dL (8.5-10.1); Uric Acid 3.6 mg/dL (2.6-6.0)
[2019-01-01 15:24] LABS: BUN/Creatinine Ratio 15.7; Bilirubin, Total 0.2 mg/dL (0.2-1.0); Total Protein 7.4 g/dL (6.4-8.2)
== END | disposition home or self-care (01) ==
LOC: LAB 14:46
DX: M06.9 Rheumatoid arthritis, unspecified (principal); E46 Unspecified protein-calorie malnutrition; Z79.899 Other long term (current) drug therapy
CPT/HCPCS: 36415; 80053; 80061; 82043; 83036; 84443; 84550; 85025

== ENCOUNTER → 2019-09-01 | Outpatient (CLI) | payer OTHER ==
[2019-09-01 08:23] LABS: Basophils # (auto) 0.1 10 ^3/uL (0-0.2); Basophils % (auto) 1.5 % (0.0-2.0); Eosinophils # (auto) 0.2 10 ^3/uL (0-0.8); Eosinophils % (auto) 4.5 % (0.0-7.0); Hemoglobin 7.1 g/dL (12.2-16.2); Lymphocytes # (auto) 0.6 10 ^3/uL (0.4-5.4); Lymphocytes % (auto) 13.7 % (10.0-50.0); Mean Corpuscular Hemoglobin 28.5 pg (28.0-32.0); Mean Corpuscular Volume 88.9 fL (80.0-100.0); Monocytes # (auto) 0.1 10 ^3/uL (0-1.3); Monocytes % (auto) 2.8 % (0.0-12.0); Neutrophils # (auto) 3.1 10 ^3/uL (1.6-8.6); Neutrophils % (auto) 77.5 % (37.0-80.0); Platelet Count (auto) 436 10^3/uL (140-450); Red Blood Cells 2.48 10^6/uL (4.0-5.20)
[2019-09-01 08:24] LABS: Red Cell Distribution Width 25.3 % (11.8-14.3)
[2019-09-01 08:30] LABS: Calcium 8.8 mg/dL (8.5-10.1); Potassium 5.2 mmol/L (3.5-5.1)
[2019-09-01 08:36] LABS: BUN/Creatinine Ratio 30.4; Bilirubin, Total 0.2 mg/dL (0.2-1.0)
== END | disposition home or self-care (01) ==
LOC: LAB 07:12
DX: J44.9 Chronic obstructive pulmonary disease, unspecified (principal); I10 Essential (primary) hypertension; M79.89 Other specified soft tissue disorders; M06.9 Rheumatoid arthritis, unspecified; R63.4 Abnormal weight loss; R91.8 Other nonspecific abnormal finding of lung field
CPT/HCPCS: 36415; 80053; 80061; 85025

== ENCOUNTER 2019-09-23 19:43 | Emergency (ER) | payer OTHER ==
[~2019-09-23] VITALS: Ht 167.6 cm; Wt 40.8 kg
[2019-09-23] MEDS ORDERED: SODIUM CHLORIDE 0.9% 500 ML IVB ONE (20:07)
[2019-09-23 21:16] LABS: Urine Bacteria FEW /hpf (None Seen); Urine Blood 2+ /uL (Negative); Urine Mucus FEW (None Seen); Urine Specific Gravity 1.009 (1.001-1.035); Urine WBC 3 /hpf (0 - 5)
[2019-09-23 21:26] LABS: Basophils # (auto) 0 10 ^3/uL (0-0.2); Eosinophils # (auto) 0.1 10 ^3/uL (0-0.8); Lymphocytes # (auto) 0.4 10 ^3/uL (0.4-5.4); Monocytes # (auto) 0.1 10 ^3/uL (0-1.3); Neutrophils # (auto) 2.6 10 ^3/uL (1.6-8.6)
[2019-09-23 21:27] LABS: Basophils % (auto) 0.9 % (0.0-2.0); Eosinophils % (auto) 3.7 % (0.0-7.0); Hematocrit 21.5 % (36.0-46.0); Lymphocytes % (auto) 11.5 % (10.0-50.0); Mean Corpuscular Hemoglobin 29.3 pg (28.0-32.0); Mean Corpuscular Hgb Conc. 32.1 g/dL (32.0-36.0); Mean Corpuscular Volume 91.4 fL (80.0-100.0); Monocytes % (auto) 3.6 % (0.0-12.0); Neutrophils % (auto) 80.3 % (37.0-80.0); Platelet Count (auto) 370 10^3/uL (140-450); Red Blood Cells 2.35 10^6/uL (4.0-5.20); White Blood Cell 3.2 10^3/uL (4.4-10.8)
[2019-09-23 21:33] LABS: Red Cell Distribution Width 26.4 % (11.8-14.3)
[2019-09-23 21:34] LABS: Amphetamine Screen, Urine NEGATIVE (NEGATIVE); Barbiturate Scree,Urine NEGATIVE (NEGATIVE); Benzodiazephine Screen, Urine NEGATIVE (NEGATIVE); Cannabinoid Screen, Urine NEGATIVE (NEGATIVE); Cocaine Screen, Urine NEGATIVE (NEGATIVE); Opiate Scree,Urine NEGATIVE (NEGATIVE); Phencyclidine Screen, Urine NEGATIVE (NEGATIVE)
[2019-09-23 21:38] LABS: Hemoglobin 6.9 g/dL (12.2-16.2)
[2019-09-23 21:38] LABS: Alcohol, Urine < 3.0 mg/dL (0-10)
[2019-09-23 21:45] LABS: Anion Gap 7 (5-15); Blood Urea Nitrogen 53 mg/dL (7-18); Calcium 7.8 mg/dL (8.5-10.1); Carbon Dioxide 23 mmol/L (21-32); Chloride 103 mmol/L (98-107); GFR African American 42 mL/min; GFR Non-African American 35 mL/min; Glucose 97 mg/dL (74-106); Potassium 4.7 mmol/L (3.5-5.1); Sodium 133 mmol/L (136-145)
[2019-09-23 23:09] LABS: Alanine Aminotransferase 18 U/L (13-56); Aspartate Aminotransferase 15 U/L (15-37); Bilirubin, Total 0.2 mg/dL (0.2-1.0); Total Protein 7.5 g/dL (6.4-8.2)
[2019-09-23 23:21] LABS: Alkaline Phosphatase 70 U/L (45-117); Blood Alcohol < 3.0 mg/dL (0-5)
[2019-09-24] MEDS ORDERED: cefTRIAXone 1GM/50ML D5W 50 ML IV ONE (00:30)
[2019-09-24] MEDS ORDERED: METHADONE HCL 10 MG TAB PO ONE (06:45)
[2019-09-24 10:00] VITALS: BP 110/71
== END 2019-09-24 10:39 | disposition home or self-care (01) ==
LOC: EDBD 19:43 → ER 19:46
DX: R41.82 Altered mental status, unspecified (principal); D64.9 Anemia, unspecified; M19.90 Unspecified osteoarthritis, unspecified site; I10 Essential (primary) hypertension; Z88.1 Allergy status to other antibiotic agents
CPT/HCPCS: 36415; 70450; 71045; 74176; 80053; 80307; 80320; 81001; 82140; 82962; 83735; 84484; 85025; 86141; 86850; 86900; 86901; 96361; 96365; 99285; J0696; J7030; J7040

== ENCOUNTER 2020-08-12 15:45 | Emergency (ER) | payer OTHER ==
[~2020-08-12] VITALS: Ht 167.6 cm; Wt 47.6 kg
[~2020-08-12 15:45] MED LIST changes: +AMLO-489 PO; -AMLO5TAB15 PO; +METH2.5T PO; -METH2.5T3 PO
[2020-08-12 16:48] LABS: Hematocrit 20.4 % (36.0-46.0); Mean Corpuscular Hemoglobin 32.2 pg (28.0-32.0); Mean Corpuscular Hgb Conc. 32.2 g/dL (32.0-36.0); Mean Corpuscular Volume 100.1 fL (80.0-100.0); Red Blood Cells 2.04 10^6/uL (4.0-5.20); Red Cell Distribution Width 19.1 % (11.8-14.3)
[2020-08-12 16:56] LABS: White Blood Cell 1.9 10^3/uL (4.4-10.8)
[2020-08-12 16:57] LABS: Hemoglobin 6.6 g/dL (12.2-16.2)
[2020-08-12 16:58] LABS: Basophils % (manual) 0 (0.0-2.0); Blast Cells 0; Metamyelocytes % 0; Myelocytes % 0; Promyelocytes % 0; Reactive Lymphocytes 0
[2020-08-12 17:02] LABS: Albumin 2.7 g/dL (3.4-5.0); Calcium 7.8 mg/dL (8.5-10.1); Potassium 3.7 mmol/L (3.5-5.1)
[2020-08-12 17:05] LABS: BUN/Creatinine Ratio 17.3; Bilirubin, Total 0.4 mg/dL (0.2-1.0); Total Protein 7.1 g/dL (6.4-8.2)
[2020-08-12 17:29] LABS: Band Neutrophils % (manual) 7; Eosinophils % (manual) 1 (0-7); Lymphocytes % (manual) 24 (10.0-50.0); Monocytes % (manual) 1 (0-12)
[2020-08-12 22:30] VITALS: BP 108/65
[2020-08-12 22:46] VITALS: BP 115/56
[2020-08-12 23:01] VITALS: BP 114/74
[2020-08-13 00:01] VITALS: BP 122/72
[2020-08-13 01:00] VITALS: BP 102/84
[2020-08-13 05:35] VITALS: BP 126/68
== END 2020-08-13 05:42 | disposition home or self-care (01) ==
LOC: ER 15:47
DX: D64.9 Anemia, unspecified (principal); R60.0 Localized edema; I10 Essential (primary) hypertension; Z88.1 Allergy status to other antibiotic agents
CPT/HCPCS: 36415; 36430; 72131; 74176; 80053; 85007; 85027; 86850; 86900; 86901; 86920; 99285; J7030; P9016